=== PATIENT | male | born 1995 | race Hispanic/Latino ===

== ENCOUNTER 2017-01-17 21:47 | Emergency (ER) | payer OTHER ==
[2017-01-17 22:06] VITALS: BP 143/65; PULSE 56; RESP 16; TEMP 97.8; O2SAT 98
[2017-01-17] MEDS ORDERED: Lidocaine 2% Inj (20ml) INFIL ONE (22:11)
[2017-01-17] MEDS ORDERED: Lidocaine 1% Inj (20ml) INFIL ONE (22:17)
[2017-01-17] MEDS ORDERED: Lidocaine 1% Inj (20ml) ONE (22:17)
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
== END 2017-01-17 23:14 | disposition home or self-care (01) ==
LOC: H.ER 21:47
DX: S81.812A Laceration without foreign body, left lower leg, initial encounter (principal); W22.8XXA Striking against or struck by other objects, initial encounter; Y92.89 Other specified places as the place of occurrence of the external cause